=== PATIENT | male | born 1985 | race Caucasian/White ===

== ENCOUNTER 2019-08-16 16:41 | Emergency (ER) | payer BC ==
[2019-08-16] MEDS ORDERED: Albuterol/Ipratropium 3.0-0.5 MG/3 ML Neb Soln NEB ONE (17:12)
[2019-08-16] MEDS ORDERED: Ibuprofen 600 MG Tab PO ONE (17:13)
--- NOTE | 2019-08-16 17:19 | EDM.PDOC ---
ED HPI GENERAL MEDICAL PROBLEM - General Chief Complaint: Respiratory Problem Stated Complaint: SOB Time Seen by Provider: 08/16/19 17:06 Source of Information: Reports: Patient, RN Notes Reviewed History Limitations: Reports: No Limitations - History of Present Illness INITIAL COMMENTS - FREE TEXT/NARRATIVE: Patient is a 34-year-old male who presents to the ED for the evaluation of increasing shortness of breath, cough and fever. Patient notes he has been feeling ill for about 1 week now. He went to the walk-in clinic on Friday, he was checked for influenza and this was negative. He states that they listen to his lungs but did no further diagnostic testing. They told him it is most likely a viral illness and to treat symptomatically, and returned for care if things have worsened. He states that he has felt much worse since Friday. And he notes that his increased shortness of breath started today. He did have a fever at home, the highest was 102.4 F. He took DayQuil this morning, and around 4 PM this afternoon as well. He denies any other past medical history, states he does wear CPAP at night for sleep apnea, his primary care provider is Dr. Hernandez. Treatments [employer]: Reports: Acetaminophen - Related Data Allergies Allergy/AdvReac Type Severity Reaction Status Date / Time No Known Allergies Allergy Verified 08/16/19 16:58 Home Meds: Home Meds Azithromycin 250 mg PO ASDIRECTED #6 tablet 08/16/19 [Rx] Pseudoephedrine HCl [Sinus 12-Hour] 1 tab PO DAILY 08/16/19 [History] Past Medical History HEENT History: Reports: Otitis Media Respiratory History: Reports: Sleep Apnea (wears CPAP at night) Neurological History: Reports: Migraines Other Neuro History: migraines 2x year Psychiatric History: Reports: Other (See Below) Other Psychiatric History: pt states he was told he was bipolar 1 time, but never followed up - Past Surgical History HEENT Surgical History: Reports: Eye Surgery GI Surgical History: Reports: Colonoscopy Dermatological Surgical History: Reports: Skin Biopsy Social & Family History - Tobacco Use Smoking Status *Q: Never Smoker - Caffeine Use Caffeine Use: Reports: Energy Drinks Other Caffeine Use: about 1 energy drink a day - Recreational Drug Use Recreational Drug Use: No ED ROS GENERAL - Review of Systems Review Of Systems: See Below Constitutional: Reports: Fever, Chills, Malaise Respiratory: Reports: Shortness of Breath, Cough, Sputum. Denies: Wheezing Cardiovascular: Denies: Chest Pain GI/Abdominal: Denies: Abdominal Pain, Constipation, Diarrhea, Nausea, Vomiting Neurological: Denies: Headache ED EXAM, GENERAL - Physical Exam Exam: See Below Exam Limited By: No Limitations General Appearance: Alert, WD/WN, No Apparent Distress Eye Exam: Bilateral Eye: EOMI, Normal Inspection, PERRL Ears: Normal External Exam, Normal Canal, Hearing Grossly Normal, Normal TMs Nose: Normal Inspection, Normal Mucosa, No Blood Throat/Mouth: Normal Inspection, Normal Lips, Normal Teeth, Normal Gums, Normal Oropharynx, Normal Voice, No Airway Compromise Head: Atraumatic, Normocephalic Neck: Normal Inspection, Supple, Non-Tender, Full Range of Motion Respiratory/Chest: No Respiratory Distress, Lungs Clear, No Accessory Muscle Use , Chest Non-Tender, Decreased Breath Sounds (diffuse bilaterally) Cardiovascular: Normal Peripheral Pulses, Regular Rate, Rhythm, No Edema, No Murmur Peripheral Pulses: 3+: Radial (L), Radial (R) GI/Abdominal: Normal Bowel Sounds, Soft, Non-Tender, No Distention, No Mass Extremities: Normal Inspection, Normal Capillary Refill Neurological: Alert, Oriented, Normal Cognition, No Motor/Sensory Deficits Psychiatric: Normal Affect, Normal Mood Skin Exam: Warm, Dry, Intact, Normal Color, No Rash Course - Vital Signs Last Recorded V/S: Last Vital Signs Temp 101.2 F H 08/16/19 16:54 Pulse 99 08/16/19 16:54 Resp 22 H 08/16/19 16:54 BP 135/88 08/16/19 16:54 Pulse Ox 94 L 08/16/19 17:12 - Orders/Labs/Meds Orders: Active Orders 24 hr Category Date Time Status RT Aerosol Therapy [RC] ASDIRECTED Care 08/16/19 17:12 Ordered CBC WITH MANUAL DIFF [HEME] Stat Lab 08/16/19 17:37 Received COMPREHENSIVE METABOLIC PN,CMP [CHEM] Stat Lab 08/16/19 17:11 Ordered Labs: Laboratory Tests 08/16/19 Range/Units 17:37 WBC 6.56 (4.23-9.07) K/mm3 RBC 5.15 (4.63-6.08) M/mm3 Hgb 14.9 (13.7-17.5) gm/dl Hct 43.2 (40.1-51.0) % MCV 83.9 (79.0-92.2) fl MCH 28.9 (25.7-32.2) pg MCHC 34.5 (32.2-35.5) g/dl RDW Std Deviation 36.3 (35.1-43.9) fL Plt Count 226 (163-337) K/mm3 MPV 9.7 (9.4-12.3) fl Meds: Medications Discontinued Medications Generic Name Dose Route Start Last Admin Trade Name Freraquel PRN Reason Stop Dose Admin Albuterol/Ipratropium 3 ml 08/16/19 17:12 08/16/19 17:30 Duoneb 3.0-0.5 Mg/3 Ml NEB 08/16/19 17:13 3 ml ONETIME ONE Administration Ibuprofen 600 mg 08/16/19 17:13 08/16/19 17:16 Motrin PO 08/16/19 17:14 600 mg ONETIME ONE Administration - Re-Assessments/Exams Free Text/Narrative Re-Assessment/Exam: 08/16/19 17:18 Patient presents to the ED for increased shortness of breath, cough and a fever. I will order laboratory evaluation to include CBC and CMP, chest x-ray, and a DuoNeb with 60 mg ibuprofen to be given for initial management. I suspect this to be more of a viral illness in nature. However his oxygen level is quite low. He is not stating that he is actually coughing a lot of junk up, but he states when he does get up is a cruddy green color. Departure - Departure Time of Disposition: 18:06 Disposition: Home, Self-Care 01 Condition: Fair Clinical Impression: Community acquired pneumonia Qualifiers: Laterality: left Lung location: lower lobe of lung Qualified Code(s): J18.9 - Pneumonia, unspecified organism - Discharge Information *PRESCRIPTION DRUG MONITORING PROGRAM REVIEWED*: No *COPY OF PRESCRIPTION DRUG MONITORING REPORT IN PATIENT SANTY: No Prescriptions: Azithromycin 250 mg PO ASDIRECTED #6 tablet Instructions: Community-Acquired Pneumonia, Adult, [id number] Referrals: Tony Mckenzie MD [Primary Care Provider] - Forms: ED Department Discharge Additional Instructions: You were evaluated in the ER today regarding your increased shortness of breath , cough, fever. Lab work was obtained and a chest x-ray was done, and demonstrates an early pneumonia in the lower lobe of your left lung. You have been started on antibiotics for this. [facility]. Recommend you try to increase your fluid intake and eat normal meals as much as possible. Please give the antibiotics a good 48 hours to start working, if you are not feeling better in 3 days time, recommend you seek care for reevaluation. As with any other sort of respiratory illness, you may take 500 mg Tylenol/600 mg ibuprofen every 6 hours as needed for further pain relief/fever management. Do not exceed 4000 mg Tylenol or 3200 mg ibuprofen in a 24-hour time span. Please return to the ER if your symptoms change or worsen. Sepsis Event Note - Evaluation Sepsis Screening Result: Possible Sepsis Risk - Focused Exam Vital Signs: Vital Signs Temp Pulse Resp BP Pulse Ox Pulse Ox 08/16/19 17:12 94 L 08/16/19 16:54 101.2 F H 99 22 H 135/88 93 L Date Exam was Performed: 08/16/19 Time Exam was Performed: 18:06 - My Orders Last 24 Hours: My Active Orders 08/16/19 17:11 COMPREHENSIVE METABOLIC PN,CMP [CHEM] Stat 08/16/19 17:12 RT Aerosol Therapy [RC] ASDIRECTED 08/16/19 17:37 CBC WITH MANUAL DIFF [HEME] Stat - Assessment/Plan Last 24 Hours: My Active Orders 08/16/19 17:11 COMPREHENSIVE METABOLIC PN,CMP [CHEM] Stat 08/16/19 17:12 RT Aerosol Therapy [RC] ASDIRECTED 08/16/19 17:37 CBC WITH MANUAL DIFF [HEME] Stat
--- NOTE | 2019-08-16 17:54 | CR ---
Chest: 2 views of the chest were obtained. Comparison: No previous chest x-ray. Slight increased density within the lingula is seen. Right lung is clear. Heart size and mediastinum are normal. Bony structures are unremarkable. Impression: 1. Mild increased density within the lingula most likely representing an early area of pneumonia. 2. 2 view chest x-ray is otherwise unremarkable. Diagnostic code #3 This report was dictated in [place] Standard Time
== END 2019-08-16 18:16 | disposition home or self-care (01) ==
LOC: JD.ED 16:41
DX: J18.9 Pneumonia, unspecified organism (principal); Z79.899 Other long term (current) drug therapy
CPT/HCPCS: 36415; 71046; 80053; 85007; 85027; 94640; 99285; A9270; 99283; J7620-GY

== ENCOUNTER 2022-12-11 16:34 | Emergency (ER) | payer BC ==
[2022-12-11] MEDS ORDERED: methylPREDNISolone Sodium Succinate 125 MG/2 ML SDV IVPUSH ONE (17:34)
[2022-12-11] MEDS ORDERED: Albuterol/Ipratropium 3.0-0.5 MG/3 ML Neb Soln NEB ONE (17:34)
[2022-12-11 18:30] LABS: BASOPHILS ABSOLUTE AUTO 0.02 K/mm3 (0.01-0.08); BASOPHILS PERCENT AUTO 0.3 % (0.1-1.2); EOSINOPHILS PERCENT AUTO 4.6 (0.8-7.0); HEMATOCRIT 47.8 % (40.1-51.0); HEMOGLOBIN 16.2 gm/dl (13.7-17.5); IMMATURE GRAN ABSOLUTE AUTO 0.02 K/mm3 (0.00-0.10); IMMATURE GRAN PERCENT AUTO 0.3 % (<=1.0); LYMPHOCYTES ABSOLUTE AUTO 0.78 K/mm3 (1.32-3.57); LYMPHOCYTES PERCENT AUTO 11.9 % (21.8-53.1); MEAN CORPUSCULAR HEMOGLOBIN 29.2 pg (25.7-32.2); MEAN CORPUSCULAR HGB CONC 33.9 g/dl (32.2-35.5); MEAN CORPUSCULAR VOLUME 86.1 fl (79.0-92.2); MEAN PLATELET VOLUME 10.1 fl (9.4-12.3); MONOCYTES ABSOLUTE AUTO 0.66 K/mm3 (0.30-0.82); MONOCYTES PERCENT AUTO 10.1 % (5.3-12.2); NEUTROPHILS ABSOLUTE AUTO 4.78 K/mm3 (1.78-5.38); NEUTROPHILS PERCENT AUTO 72.8 % (34.0-67.9); PLATELET COUNT,PLT 238 K/mm3 (163-337); RED BLOOD CELL COUNT 5.55 M/mm3 (4.63-6.08); WHITE BLOOD CELL COUNT,WBC 6.56 K/mm3 (4.23-9.07)
[2022-12-11 19:36] LABS: A/G RATIO 0.9 (1-2); ANION GAP 12.2 (5-15); BILIRUBIN TOTAL 0.7 mg/dL (0.2-1.0); CALCIUM 8.9 mg/dL (8.5-10.1); EST CRCL DRUG DOSING (CG) 105.44 mL/min; POTASSIUM,K 4.2 mEq/L (3.5-5.1); PROTEIN TOTAL,TP 8.3 g/dl (6.4-8.2)
[2022-12-11 19:56] LABS: CORONAVIRUS COVID-19 NAA NEGATIVE (NEGATIVE); INFLUENZA A NAA NEGATIVE (NEGATIVE); RESPIRATORY SYNCYTIAL VIR NAA NEGATIVE (NEGATIVE)
== END 2022-12-11 21:05 | disposition home or self-care (01) ==
LOC: JD.ED 16:34
DX: J45.901 Unspecified asthma with (acute) exacerbation (principal); B34.9 Viral infection, unspecified; Z86.16 Personal history of COVID-19; Z72.0 Tobacco use; Z20.822 Contact with and (suspected) exposure to COVID-19
CPT/HCPCS: 0241U; 36415; 71046; 80053; 85025; 94640; 96374; 99285; J2930; J7620-GY

== ENCOUNTER 2024-06-27 15:58 | Emergency (ER) | payer BC | END 2024-06-27 17:33 | disposition home or self-care (01) | LOC: JD.ED 15:58 | DX: S06.0X0A Concussion without loss of consciousness, initial encounter (principal); F17.210 Nicotine dependence, cigarettes, uncomplicated; Z86.16 Personal history of COVID-19; W20.8XXA Other cause of strike by thrown, projected or falling object, initial encounter; Y99.0 Civilian activity done for income or pay | CPT/HCPCS: 70450; 70450-26; 99284 ==